=== PATIENT | male | born 1945 | race Caucasian/White ===

== ENCOUNTER → 2016-10-17 | Outpatient (CLI) | payer OTHER | LOC: CIMAGING 13:05 | PROVIDERS: ATTEND Surgery | DX: R91.1 Solitary pulmonary nodule (principal); K76.0 Fatty (change of) liver, not elsewhere classified; I25.10 Atherosclerotic heart disease of native coronary artery without angina pectoris; Z85.47 Personal history of malignant neoplasm of testis | CPT/HCPCS: 71250-PO ==

== ENCOUNTER → 2017-01-01 | Outpatient (CLI) | payer OTHER | LOC: CIMAGING 10:20 | PROVIDERS: ATTEND Orthopaedic Surgery | DX: Z47.1 Aftercare following joint replacement surgery (principal); Z96.651 Presence of right artificial knee joint | CPT/HCPCS: 73562-PO ==

== ENCOUNTER → 2017-07-29 | Outpatient (CLI) | payer OTHER ==
[~2017-07-29] MED LIST: IOPAMIDOL (ISOVUE-300) 100 ML BTL ONE
== END ==
LOC: FIMAGING 13:16
PROVIDERS: ATTEND Surgery
DX: Z85.47 Personal history of malignant neoplasm of testis (principal); R91.1 Solitary pulmonary nodule; K40.90 Unilateral inguinal hernia, without obstruction or gangrene, not specified as recurrent; I70.0 Atherosclerosis of aorta
CPT/HCPCS: 71260; 74177; Q9967

== ENCOUNTER → 2018-10-06 | Outpatient (CLI) | payer OTHER ==
[~2018-10-06] MED LIST changes: -IOPAMIDOL (ISOVUE-300) 100 ML BTL ONE; +IOPAMIDOL (ISOVUE-370) 150 ML BTL IV ONE
== END ==
LOC: CIMAGING 14:03
PROVIDERS: ATTEND Surgery
DX: J98.4 Other disorders of lung (principal); D37.6 Neoplasm of uncertain behavior of liver, gallbladder and bile ducts; Z85.47 Personal history of malignant neoplasm of testis
CPT/HCPCS: 71260; 74177; Q9967; 82565-PO

== ENCOUNTER → 2019-02-10 | Outpatient (CLI) | payer OTHER | LOC: CIMAGING 12:18 ==